=== PATIENT | female | born 1990 | race Caucasian/White ===

== ENCOUNTER 2017-02-08 07:10 | Inpatient (IN) | payer OTHER ==
[2017-02-08] MEDS ORDERED: RINGERS SOLUTION,LACTATED 1,000 ML IV ONE (07:58)
[2017-02-08] MEDS ORDERED: RINGERS SOLUTION,LACTATED 1,000 ML IV PRN (07:58)
[2017-02-08 07:59] LABS: APPEARANCE,URINE CLOUDY; BILIRUBIN,URINE NEGATIVE (NEGATIVE); GLUCOSE, URINE NEGATIVE (NEGATIVE); KETONES,URINE NEGATIVE (NEGATIVE); LEUKOCYTE ESTERASE,URINE NEGATIVE (NEGATIVE); NITRITE,URINE NEGATIVE (NEGATIVE); PROTEIN,URINE NEGATIVE (NEGATIVE); URINE SPECIFIC GRAVITY 1.004; UROBILINOGEN,URINE NEGATIVE mg/dL (<2.0)
[2017-02-08 08:21] LABS: URINE BARBITURATES SCREEN NEGATIVE; URINE METHADONE SCREEN NEGATIVE; URINE OPIATES LOW NEGATIVE; URINE PHENCYCLIDINE SCREEN NEGATIVE
[2017-02-08 08:53] LABS: ABSOLUTE BASOPHILS # (AUTO) 0.1 10^3/uL (0.0-0.2); ABSOLUTE LYMPHOCYTES (AUTO) 1.7 10^3/uL (0.5-4.7); ABSOLUTE NEUT (AUTO) 11.6 10^3/uL (1.7-8.2); BASOPHILS % (AUTO) 0.5 % (0-2); EOSINOPHILS % (AUTO) 0.3 % (0-6); HEMATOCRIT 38.2 % (36.0-47.0); HEMOGLOBIN 12.4 g/dL (12.0-15.5); MEAN CORPUSCULAR HEMOGLOBIN 26.2 pg (27.0-33.4); MEAN CORPUSCULAR HGB CONC 32.4 g/dL (32.0-36.0); MEAN CORPUSCULAR VOLUME 81 fl (80-97); MONOCYTES % (AUTO) 6.6 % (3-13); RED BLOOD COUNT 4.73 10^6/uL (3.72-5.28); RED CELL DISTRIBUTION WIDTH 15.1 % (11.5-14.0); SEGMENTED NEUTROPHILS % (AUTO) 80.6 % (42-78); WHITE BLOOD COUNT 14.4 10^3/uL (4.0-10.5)
[2017-02-08] MEDS ORDERED: MISOPROSTOL 0.2 MG TABLET ONE (09:54)
[2017-02-08] MEDS ORDERED: LIDOCAINE 1% INJ-PF (10 MG/ML) 30 ML SDV ONE (09:55)
[2017-02-08] MEDS ORDERED: OXYTOCIN/NORMAL SALINE 20 UNIT/1,000 ML RTUINJ ONE (09:55)
[2017-02-08] MEDS ORDERED: OXYTOCIN/NORMAL SALINE 20 UNIT/1,000 ML RTUINJ IV PRN ×2 (10:07→23:04)
[2017-02-08] MEDS ORDERED: FENTANYL CITRATE INJ/PF 100 MCG/2 ML AMPUL ONE (13:52)
[2017-02-08] MEDS ORDERED: PHENYLEPHRINE HCL INJ/PF 10 MG/1 ML SDV ONE (13:53)
[2017-02-08] MEDS ORDERED: EPHEDRINE SULFATE INJ 50 MG/1 ML AMPULE ONE (13:53)
[2017-02-08] MEDS ORDERED: FENTANYL/BUPIVACAINE/NS/PF 200 MCG/100 ML RTUINJ EPI ONE (13:53)
[2017-02-08] MEDS ORDERED: BUPIVACAINE HCL 0.25 % INJ/PF (2.5 MG/1 ML) 30 ML VIAL ONE (13:54)
--- NOTE | 2017-02-08 15:40 | L&D Progress Notes ---
PROGRESS NOTES Datetime Report Generated by CPN: 02/08/2017 15:40 PROGRESS NOTE Impression: Normal Progression of Labor; Reassuring Heart Rate Impression: Normal Progression of Labor; Reassuring Heart Rate Procedures: Sterile Vag Exam Procedures: Sterile Vag Exam Procedures: Sterile Vag Exam Plan: Continue Present Management Plan: Augmentation Plan: Continue Present Management; Augmentation Informed Consent Obtained: Vaginal Delivery Vital Signs : Reviewed Vital Signs : Reviewed; Within Normal Limits Vital Signs : Reviewed Comment: Will continue present management. Pt more comfortable with epidural. Comment: Pt feeling more uncomfortable, desires epidural (Annotations: Data stored by [facility] on behalf of user) VAGINAL EXAM Dilatation: 4 Dilatation: 3 Dilatation: 1 Effacement: 80 Effacement: 80 Effacement: 60 Station: -1 Station: -1 Station: -3 Contractions: 2-4 Contractions: 2-4 Contractions: rare MEMBRANES Membranes: Intact Membranes: Ruptured Membranes: Ruptured Amniotic Fluid Color: Clear Amniotic Fluid Color: Clear FETUS A FHR - Baseline: 135 FHR - Baseline: 135 FHR - Baseline: 125 Monitoring: External US Monitoring: External US Variability: Moderate 6-25bpm Variability: Moderate 6-25bpm Variability: Moderate 6-25bpm Accelerations: Absent Accelerations: 15X15 Accelerations: 15X15 Decelerations: Early; Variable Decelerations: None Decelerations: None FHR Category: Category II FHR Category: Category I FHR Category: Category I Estimated Weight (gm): 3900 Presentation: Vertex SIGNATURE SIGNATURE: [id number] Assignment: Leeanne Araujo MD Signature: with User ID: Lopez : with User ID: Lopez
[2017-02-08] MEDS ORDERED: SODIUM BICARBONATE 8.4% INJ 50 MEQ/50 ML DISP.SYRIN ONE (18:38)
[2017-02-08] MEDS ORDERED: LIDOCAINE 1.5%/EPINEPHRINE INJ-PF 30 ML SDV INJ ONE (19:00)
[2017-02-08] MEDS ORDERED: ACETAMINOPHEN 650 MG SUPP.RECT PR PRN (23:04)
[2017-02-08] MEDS ORDERED: DIPH/PERTUSS(ACELL)/TETANUS VAC/PF 0.5 ML SYR (>=10YO) IM PRN (23:04)
[2017-02-08] MEDS ORDERED: ACETAMINOPHEN WITH CODEINE #3 TABLET PO PRN ×2 (23:04)
[2017-02-08] MEDS ORDERED: PROMETHAZINE HCL INJ 25 MG/1 ML VIAL IV PRN (23:04)
[2017-02-08] MEDS ORDERED: DIPHENHYDRAMINE HCL 25 MG CAPSULE PO PRN (23:04)
[2017-02-08] MEDS ORDERED: PSEUDOEPHEDRINE HCL 30 MG TABLET PO PRN (23:04)
[2017-02-08] MEDS ORDERED: PROMETHAZINE HCL 25 MG TABLET PO PRN (23:04)
[2017-02-08] MEDS ORDERED: BENZOCAINE/MENTHOL AEROSOL SPRAY 56 ML TOP PRN (23:04)
[2017-02-08] MEDS ORDERED: ZOLPIDEM TARTRATE 5 MG TABLET PO PRN (23:04)
[2017-02-08] MEDS ORDERED: NA PHOS,M-B/NA PHOS,DI-BA (ADULT) 133 ML ENEMA PR PRN (23:04)
[2017-02-08] MEDS ORDERED: PROMETHAZINE HCL 25 MG SUPP.RECT PR PRN (23:04)
[2017-02-08] MEDS ORDERED: MAGNESIUM HYDROXIDE SUSP 30 ML UDCUP PO PRN (23:04)
[2017-02-08] MEDS ORDERED: DIBUCAINE 1% OINTMENT 28 GM TP PRN (23:04)
[2017-02-08] MEDS ORDERED: GLYCERIN/WITCH HAZEL LEAF 1 EACH MED..PAD TP PRN (23:04)
[2017-02-08] MEDS ORDERED: MEASLES,MUMPS&RUBELLA VACC/PF 0.5 ML VIAL SUBCUT PRN (23:04)
[2017-02-09] MEDS ORDERED: IBUPROFEN 800 MG TABLET ONE
--- NOTE | 2017-02-09 00:12 | Delivery Summary ---
Del Sum A-C Datetime Report Generated by CPN: 02/09/2017 00:12 DELIVERY PERSONNEL DELIVERY PERSONNEL: [id number] Delivery Doctor:: Leeanne Araujo MD Labor and Delivery Nurse:: Mariah Eisenberg RN Labor and Delivery Nurse:: Rebekah DULCE Cuello Band Tier/NETWORK ACCOUNT MANAGER: Aretha Quintero, NETWORK ACCOUNT MANAGER MATERNAL INFORMATION Delivery Anesthesia: Epidural Medications After Delivery: Pitocin Drip 20 Units/1000ml NSS Estimated Blood Loss (ml): 250 Maternal Complications: None LABOR SUMMARY EDC: 02/10/2017 00:00 No. Babies in Womb: 1 Attempted: No Labor Anesthesia: Epidural LABOR INFORMATION Reason for Induction: Not Applicable Onset of Labor: 02/08/2017 10:45 Complete Dilatation: 02/08/2017 21:21 Oxytocin: Augmentation Group B Beta Strep: NEGATIVE Antibiotics # of Doses: 0 Steroids Given: None Reason Steroids Not Administered: Indication MEMBRANES Membranes Rupture Method: Spontaneous Rupture of Membranes: 02/08/2017 06:00 Length of Rupture (hr): 16.77 Amniotic Fluid Color: Clear Amniotic Fluid Amount: Small Amniotic Fluid Odor: None STAGES OF LABOR Stage 1 hr: 10 Stage 1 min: 36 Stage 2 hr: 1 Stage 2 min: 25 Stage 3 hr: 0 Stage 3 min: 9 Total Time in Labor hr: 12 Total Time in Labor min: 10 VAGINAL DELIVERY Episiotomy: None Laceration #1: None Other Laceration: small right labial laceration Laceration Repair: Yes Laceration Repair Note: repaired with one 3-0 chromic suture Sponge Count Correct: N/A; Vaginal Sweep Performed Sharps Count Correct: Yes CSECTION DELIVERY Primary Indication: N/A Secondary Indication: N/A CSection Incidence: N/A Labor: N/A Elective: N/A CSection Incision: N/A BABY A INFORMATION Infant Delivery Date/Time: 02/08/2017 22:46 Method of Delivery: Vaginal Born in Route : No : N/A Forceps: N/A Vacuum Extraction: N/A Shoulder Dystocia : No PRESENTATION/POSITION BABY A Presentation: Cephalic Cephalic Presentation: Vertex Vertex Position: Right Occipital Anterior Breech Presentation: N/A PLACENTA INFORMATION BABY A Placenta Delivery Time : 02/08/2017 22:55 Placenta Method of Delivery: Spontaneous Placenta Status: Delivered SCORES BABY A Heart Rate 1 min: >100 bpm Resp Effort 1 min: Good Cry Reflex Irritability 1 min: Cough or Sneeze or Pulls Away Muscle Tone 1 min: Active Motion Color 1 min: Body Bovey, Extremities Blue Resuscitation Effort 1 min: Tactile Stimulation SCORE 1 MIN: 9 Heart Rate 5 min: >100 bpm Resp Effort 5 min: Good Cry Reflex Irritability 5 min: Cough or Sneeze or Pulls Away Muscle Tone 5 min: Active Motion Color 5 min: Body Bovey, Extremities Blue Resuscitation Effort 5 min: Tactile Stimulation SCORE 5 MIN: 9 INFORMATION BABY A Gestational Age at Delivery: 39.5 Gestational Status: Full Term- 39- 40.6 Weeks Outcome : Liveborn Infant Condition : Stable Infant Sex: Male IDENTIFICATION BABY A Infant Verification Date/Time: 02/08/2017 22:58 ID Band Number: [id number] Mother's Name Verified: Yes Infant RN Verifying Infant: Dillon Cortes, RN Additional Verifying Personnel: Nj Cuello, RN WEIGHT/LENGTH BABY A Infant Birthweight (gm): 3310 Weight (lb): 7 Infant Weight (oz): 5 Length (in): 21.00 Infant Length (cm): 53.34 CORD INFORMATION BABY A No. Cord Vessels: 3 Nuchal Cord : N/A Cord Blood Taken: Yes-For Storage (Mom's Blood type +) Infant Suction: Mouth; Nose ASSESSMENT BABY A Complications: None Physical Findings at Delivery: Molding of the Head Respirations: Grunting Skin to Skin: Yes Skin to Skin Time (min): 45 Crystal Finisher/ALS Called : No Infant Care By: Josie Cuello, RN Transferred To: Remains with Mother BABY B INFORMATION : N/A SIGNATURES Signature: with User ID: Andrew
--- NOTE | 2017-02-09 01:18 | Admission Physical ---
Datetime Report Generated by [facility]: 02/09/2017 01:18 CURRENT ADMISSION Hx Assessment: The History has been Reviewed and is Current Chief Complaint: Suspected Ruptured Membranes Indication for Induction: Not Applicable Indication for Induction: Term, Intrauterine ; No Active Labor; Ruptured Membranes Admit Plan: Admit to Unit; Initiate Labor Protocol ALLERGIES Medication Allergies: No Medication Allergies: amoxicillin (02/08/2017); nickel (02/08/2017) Medication Allergies: No Known Allergies (02/08/2017) Medication Allergies: none (Annotations: Data stored by [facility] on behalf of user) Latex: No Latex Allergies Food Allergies: NONE Environmental Allergies: NICKEL OBSTETRICAL HISTORY EDC: 02/10/2017 00:00 : 1 Para: 0 Term: 0 : 0 SAB: 0 IAB: 0 Ectopic: 0 Livin Cesareans: 0 VBACs: 0 Multiple Births: 0 Gestational Diabetes: No Rh Sensitization: No Incompetent Cervix: No JASMINA: No Infertility: No ART Treatment: No Uterine Anomaly: No IUGR: No Hx Previous C/S: No Macrosomia: No Hx Loss/Stillborn: No PIH: No Hx : No Placenta Previa/Abruption: No Depression/PP Depression: No PTL/PROM: No Post Hemorrhage: No Current Procedures: Ultrasound Obstetrical History Comments: G1- CURRENT SEE RECORDS Alcohol: No Marijuana : No Cocaine: No Other Illicit Drugs: No Cigarettes: Never Smoker. [id number] MEDICAL HISTORY Diabetes: No Blood Transfusion: No Pulmonary Disease (Asthma, TB): No Breast Disease: No Hypertension: No Compliance Intern Surgery: No Heart Disease: No Hosp/Surgery: Yes Autoimmune Disorder: No Anesthetic Complications: No Kidney Disease: No Abnormal Pap Smear: No Neuro/Epilepsy: No Psychiatric Disorders: No Other Medical Diseases: No Hepatitis/Liver Disease: No Significant Family History: No Varicosities/Phlebitis: No Trauma/Violence : No Thyroid Dysfunction: No Medical History Comments: T_A A CHILD INFECTIOUS HISTORY Gonorrhea: No Genital Herpes: No Chlamydia: No Tuberculosis: No Syphilis: No Hepatitis: No HIV/AIDS Exposure: No Rash or Viral Illness: No HPV: No PHYSICAL EXAM General: Normal HEENT: Deferred Neurologic: Normal Thyroid: Normal Heart: Normal Lungs: Normal Breast: Normal Back: Normal Abdomen: Normal Genitourinary Exam: Normal Extremities: Normal DTRs: Normal Pelvic Type: Adequate Vital Signs: Reviewed VAGINAL EXAM Dilatation: 4 Dilatation: 3 Dilatation: 1 Effacement: 80 Effacement: 80 Effacement: 60 Station: -1 Station: -1 Station: -3 Contraction Comments: 2-4 Contraction Comments: 2-4 Contraction Comments: rare MEMBRANES Membranes: Intact Membranes: Ruptured Membranes: Ruptured Amniotic Fluid Color: Clear Amniotic Fluid Color: Clear FETUS A EGA: 39.5 Monitoring: External US FHR- Baseline: 130 Variability: Moderate 6-25bpm Accelerations: 15X15 Decelerations: None FHR Category: Category I Estimated Weight (gm): 3900 Presentation: Vertex Admit Comment: SROM, 0600 clear care uncomplicated Having some irregular ctx, + bloody show See records for complete hx Start Pitocin PLANS FOR LABOR AND DELIVERY Labor and Delivery: None Pain Management: Epidural Feeding Preference: Breast Benefit of Breast Feed Discussed: Yes Circumcision: Yes INFORMED CONSENT Informed Consent Obtained: Vaginal Delivery Assignment: Leeanne Araujo MD Signature: with User ID: Lopez : with User ID: Lopez
[2017-02-09] MEDS ORDERED: INFLUENZA ADLT QUAD (36MOS+) 2017-18 VAC 0.5 ML SYR IM PRN (02:05)
[2017-02-09] MEDS: IBUPROFEN 800 MG TABLET PO SCH ×3 (05:02→22:38)
[2017-02-09 09:07] LABS: HEMATOCRIT 29.3 % (36.0-47.0); HGB HCT DIFFERENCE -0.5; MEAN CORPUSCULAR HEMOGLOBIN 26.3 pg (27.0-33.4); MEAN CORPUSCULAR HGB CONC 32.7 g/dL (32.0-36.0); MEAN CORPUSCULAR VOLUME 81 fl (80-97); RED BLOOD COUNT 3.64 10^6/uL (3.72-5.28); RED CELL DISTRIBUTION WIDTH 15.4 % (11.5-14.0); WHITE BLOOD COUNT 20.6 10^3/uL (4.0-10.5)
[2017-02-09 09:28] LABS: HEMOGLOBIN 9.6 g/dL (12.0-15.5)
[2017-02-09] MEDS: PRENATAL VITAMIN W-O CA NO5/FE FUMARATE/FA CAPSULE PO SCH (09:32)
[2017-02-09] MEDS: FAMOTIDINE 20 MG TABLET PO SCH ×2 (09:32→22:38)
[2017-02-09] MEDS: SENNOSIDES/DOCUSATE 8.6-50 MG 1 EACH TABLET PO SCH (09:33)
[2017-02-09] MEDS: DOCUSATE SODIUM 100 MG CAPSULE PO SCH ×2 (09:33→17:34)
[2017-02-09] MEDS: FERROUS SULFATE 325 MG TABLET PO SCH ×2 (09:34→17:34)
--- NOTE | 2017-02-09 10:07 | PDOC PROGRESS REPORT ---
Subjective-OB Subjective: Post Delivery Day: 26 year old. Denies any needs at this time Doing well, no c/o, breast feeding, scant bleeding, ambulating Physical Exam (OB) Vital Signs: Temp Pulse Resp BP Pulse Ox 98.0 F 112 H 16 124/67 100 02/09/17 07:27 02/09/17 07:27 02/09/17 07:27 02/09/17 07:27 02/09/17 07:27 Intake & Output 02/08/17 02/09/17 02/10/17 06:59 06:59 06:59 Intake Total 200 Balance 200 Weight 100.3 kg - PIH/Pre-Eclampsia DTR's: 2 + Clonus: Negative Headache: Absent Epigastric Pain: No Visual Changes: No - Lochia Lochia Amount: Small 10-25 ml Lochia Color: Rubra/Red - Abdomen Description: Soft, Round Hernia Present: No Fundal Description: Firm, Midline Fundal Height: u/u - u/2 Objective-Diagnostic Laboratory: 02/09/17 08:30 02/09/17 08:30 WBC 20.6 H RBC 3.64 L Hgb 9.6 L D Hct 29.3 L MCV 81 MCH 26.3 L MCHC 32.7 RDW 15.4 H Plt Count 154 Assessment and Plan(PN) - Assessment and Plan (1) Normal vaginal delivery Is this a current diagnosis for this admission?: Yes - Time Spent with Patient Time with patient: Less than 15 minutes Medications reviewed and adjusted accordingly: Yes - Disposition Anticipated Discharge: Home Within: within 24 hours
[2017-02-10] MEDS: IBUPROFEN 800 MG TABLET PO SCH ×2 (05:07→14:06)
[2017-02-10 08:57] VITALS: BP 121/66
[2017-02-10] MEDS: FERROUS SULFATE 325 MG TABLET PO SCH (09:53)
[2017-02-10] MEDS: SENNOSIDES/DOCUSATE 8.6-50 MG 1 EACH TABLET PO SCH (09:53)
[2017-02-10] MEDS: PRENATAL VITAMIN W-O CA NO5/FE FUMARATE/FA CAPSULE PO SCH (09:53)
[2017-02-10] MEDS: DOCUSATE SODIUM 100 MG CAPSULE PO SCH (09:54)
[2017-02-10] MEDS: FAMOTIDINE 20 MG TABLET PO SCH (09:54)
[2017-02-10 10:38] LABS: HEMATOCRIT 31.5 % (36.0-47.0); HEMOGLOBIN 10.4 g/dL (12.0-15.5); HGB HCT DIFFERENCE -0.3; MEAN CORPUSCULAR HEMOGLOBIN 26.5 pg (27.0-33.4); MEAN CORPUSCULAR HGB CONC 33.1 g/dL (32.0-36.0); MEAN CORPUSCULAR VOLUME 80 fl (80-97); RED BLOOD COUNT 3.93 10^6/uL (3.72-5.28); RED CELL DISTRIBUTION WIDTH 15.4 % (11.5-14.0); WHITE BLOOD COUNT 14.7 10^3/uL (4.0-10.5)
== END 2017-02-10 14:45 | disposition home or self-care (01) | DRG 775 ==
LOC: LC 07:10 → LR 08:20 → 2S 02-09 01:17
PROVIDERS: ADMIT Obstetrics & Gynecology; ATTEND Obstetrics & Gynecology
PROC: 10E0XZZ Delivery of Products of Conception, External Approach (ICD-10-PCS; principal; 2017-02-08)
PROC: 0HQ9XZZ Repair Perineum Skin, External Approach (ICD-10-PCS; 2017-02-08)
PROC: 4A1HXCZ Monitoring of Products of Conception, Cardiac Rate, External Approach (ICD-10-PCS; 2017-02-08)
PROC: 3E0234Z Introduction of Serum, Toxoid and Vaccine into Muscle, Percutaneous Approach (ICD-10-PCS; 2017-02-10)
DX: O70.0 First degree perineal laceration during delivery (principal); Z3A.39 39 weeks gestation of pregnancy; Z37.0 Single live birth; Z23 Encounter for immunization
CPT/HCPCS: 36415; 59025; 80307; 81005; 85025; 85027; 86592; 86850; 86900; 86901; 90686; J2370; J2590; J3010; J3490